=== PATIENT | female | born 1960 | race Caucasian/White ===

== ENCOUNTER 2021-11-08 20:01 | Emergency (ER) | payer MEDICARE ==
[2021-11-08] MEDS ORDERED: MORPHINE SULFATE 4 MG INJ IM ONE (20:46)
[2021-11-08] MEDS ORDERED: MORPHINE SULFATE 4 MG INJ ONE (20:48)
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
[2021-11-08] MEDS ORDERED: Sodium Chloride 0.9% 1000 ML 1,000 ML ONE (21:57)
[2021-11-08] MEDS ORDERED: Sodium Chloride 0.9% 1000 ML 1,000 ML IV SCH (22:00)
[2021-11-08 22:23] VITALS: BP 150/92; PULSE 98
--- NOTE | 2021-11-09 08:45 | XRAY ---
Indication: Pain following fall. Comparison: None AP pelvis and 2 view left hip demonstrates mildly angulated and comminuted left femur intertrochanteric fracture. Elsewhere age-related osteopenia and a few pelvic phleboliths. No other bony, articular, or soft tissue abnormalities.
[2021-11-11 07:45] VITALS: O2SAT 97
== END 2021-11-08 22:31 | disposition short-term general hospital (02) ==
LOC: ED 20:01
DX: S72.142A Displaced intertrochanteric fracture of left femur, initial encounter for closed fracture (principal); V86.65XA Passenger of 3- or 4- wheeled all-terrain vehicle (ATV) injured in nontraffic accident, initial encounter; M25.552 Pain in left hip; E78.5 Hyperlipidemia, unspecified; Z79.891 Long term (current) use of opiate analgesic; Z79.899 Other long term (current) drug therapy
CPT/HCPCS: 36000; 73502; 96372; 96374; 99284; J2270

== ENCOUNTER 2023-07-21 10:50 | Day surgery (SDC) | payer MEDICARE ==
--- NOTE | 2023-07-21 08:25 | HP ---
DATE OF SURGERY: 07/21/2023 HISTORY OF PRESENT ILLNESS: The patient is a 63-year-old had a PET scan with increased uptake in the rectal area. Dr. Cantu wants follow up endoscopy. She denies any bloody stools. Sister had colon cancer. PAST MEDICAL HISTORY: Hyperlipidemia, transient ischemic attack, chronic obstructive pulmonary disease gastroesophageal reflux disease, breast cancer, renal disease. PAST SURGICAL HISTORY: Appendectomy. section. Lymph node biopsy in the past. D&C. Hysterectomy. Hemorrhoidectomy. MEDICATIONS: Stool softener, vitamin C, vitamin D3, vitamin B complex, venlafaxine, gabapentin, famotidine, Fulvestrant, denosumab, Ibrance. ALLERGIES: NKDA. TAPE. FAMILY HISTORY: Diabetes, hypertension, lung cancer. SOCIAL HISTORY: No smoking or alcohol abuse. REVIEW OF SYSTEMS: Twelve systems reviewed. No chest pain or palpitations. Other systems negative or noncontributory as above and per preadmission assessment. PHYSICAL EXAMINATION: Height 5 feet 2 inches. BMI 24.51. GENERAL: No acute distress. HEENT: Sclerae nonicteric. EOMI. Oral mucous membranes moist. NECK: No JVD. CHEST: Equal excursion, nonlabored breathing. CVS: Regular rate and rhythm. ABDOMEN: Soft. No peritoneal signs. EXTREMITIES: No significant edema. NEURO: Alert, oriented, moving extremities symmetrically. No gross motor deficits noted. RECTAL: Deferred timed to endoscopy exam. PSYCH: Appropriate mood and affect. SKIN: Dry. IMPRESSION: Abnormal PET scan with some mild increased uptake in the rectal area. The patient does have history of breast cancer, whether this is inflammation or neoplasia she is in need of follow up colonoscopy. She was shown the risk sheet, explained the procedure in detail including but not limited to risk of bleeding or infection, risk of bowel injury or perforation, risk of missed or nondiagnosis or incomplete exam possibly requiring barium enema, other studies or procedures, general risk of anesthesia or sedation, risk of bowel prep but not limited to, consent obtained. Will proceed with outpatient colonoscopy under MAC anesthesia. Otherwise, continue medications and medical management for chronic obstructive pulmonary disease and hyperlipidemia.
[2023-07-21] MEDS ORDERED: Lactated Ringers 1,000 ML IV ONE (10:56)
[2023-07-21] MEDS: Lactated Ringers 1,000 ML IV SCH (11:14)
[2023-07-21 11:30] VITALS: RESP 18; TEMP 97.8
[2023-07-21] MEDS ORDERED: DIPRIVAN 200 MG/20 ML IV ONE ×2 (12:57→13:13)
[2023-07-21] MEDS ORDERED: Versed 2 MG/2 ML Injection ONE (12:57)
[2023-07-21] MEDS ORDERED: Xylocaine-Mpf 2% 5 Ml Vial ONE (12:57)
[2023-07-21 14:13] VITALS: BP 110/81; PULSE 82; O2SAT 94
--- NOTE | 2023-07-22 08:08 | OP ---
SURGERY DATE/TIME: 07/21/2023 1303 PREOPERATIVE DIAGNOSIS: Breast cancer. She had abnormal PET with slight increased uptake in anorectal area need follow up colonoscopy for evaluation. POSTOPERATIVE DIAGNOSES: 1) Small early polyps versus hyperplastic lesion sigmoid colon x2. 2) Soft internal and external hemorrhoids without evidence of any palpable or visible unusual mass endoscopically. 3) Good prep. PROCEDURES: Colonoscopy. SURGEON: Dr. Brayan Atwood M.D. ANESTHESIA: MAC. ESTIMATED BLOOD LOSS: Minimal. INDICATIONS: As noted above. Risks and benefits explained in detail but not limited to and consent obtained. DESCRIPTION OF PROCEDURE AND FINDINGS: The patient is taken to the endoscopy room. MAC anesthesia induced. After official time out and no disagreement with planned procedure, digital rectal exam she had some small, soft internal and external hemorrhoids. There are no palpable unusual masses. No unusual hardness in that area. She does have some small internal and external hemorrhoids. Video colonoscope inserted and passed up through the slightly tortuous sigmoid, descending, transverse and ascending colon. With the external pressure and positioning on her back, the scope was able to be passed around to the cecum. Appendiceal orifice and ileocecal valve well visualized and photo documented. Prep overall was good. There was a little bit of liquidy stool suctioned and irrigated as clear as possible but did slightly limit the exam for very tiny lesions or polyps. Otherwise, the scope is slowly and carefully withdrawn. No signs of any large polyps, masses or obstructing lesions. Over around to the sigmoid colon, a couple little, small early polyps versus hyperplastic lesion removed with hot biopsy polypectomy. Good hemostasis noted. Otherwise, down in the rectum, on retroflex no evidence of any unusual masses either on the inside or the outside. She did have internal and external hemorrhoids based on digital exam this is very soft, no hardness, no evidence of any obvious suspicious neoplasm but definitely some internal and external hemorrhoids. The scope is withdrawn. The patient tolerated the procedure well. The polyps in the sigmoid had been removed with hot biopsy polypectomy. Findings discussed with the family out in the waiting area. I will see her back in the office next week.
== END 2023-07-21 14:40 | disposition home or self-care (01) ==
LOC: SDC 10:50
PROVIDERS: ATTEND Surgery
DX: K63.5 Polyp of colon (principal); R93.89 Abnormal findings on diagnostic imaging of other specified body structures; Z85.3 Personal history of malignant neoplasm of breast; Z80.1 Family history of malignant neoplasm of trachea, bronchus and lung; Z80.0 Family history of malignant neoplasm of digestive organs; K64.4 Residual hemorrhoidal skin tags; K64.8 Other hemorrhoids
CPT/HCPCS: J1642; J2250; J2704

== ENCOUNTER 2024-04-12 10:20 | Day surgery (SDC) | payer MEDICARE ==
--- NOTE | 2024-04-11 22:33 | HP ---
HISTORY OF PRESENT ILLNESS: The patient has history of upper esophagus dysphagia, mostly solids, sometimes liquids. Has history of metastatic breast cancer, lost some weight. Patient still has some bone in her right upper jaw. PAST MEDICAL HISTORY: Breast cancer, some metastases to her lower back she said. She has had lumpectomy and lymph nodes taken out in the past. She has had weight loss. She had a TIF in 2007. She has had reflux, heartburn. She has had hiatal hernia. She has had UTI,, stroke, depression, hyperlipidemia, anemia, COPD, and arthritis in the past. HOME MEDICATIONS: Kalyan, has been on some morphine p.o., fluconazole, famotidine, venlafaxine, quetiapine, potassium chloride, atorvastatin for some hyperlipidemia, albuterol sulfate inhaler. ALLERGIES: Seroquel. PAST SURGICAL HISTORY: Appendectomy, , hemorrhoid surgery, hysterectomy. She had a TIF in the past in 2016. She had colonoscopy. She had breast lumpectomy, had nodes removed in the past for cancer. She had a port in the past. She has had EGD in the past. Left hip arthroplasty in the past. SOCIAL HISTORY: Former smoker. No alcohol abuse. FAMILY HISTORY: Negative with regard to present problem. REVIEW OF SYSTEMS: Twelve systems reviewed. Pertinent for multiple medical problems mentioned above. No chest pain or palpitations. PHYSICAL EXAMINATION: GENERAL: Height 5 feet 2 inches. BMI 23.78. No acute distress. HEENT: Sclerae nonicteric. NECK: No JVD. CHEST: Clear. Equal excursion, nonlabored breathing. CARDIOVASCULAR: Regular rate and rhythm. ABDOMEN: Soft. SKIN: Dry. EXTREMITIES: No cyanosis. NEUROLOGIC: Alert. PSYCHIATRIC: Appropriate mood and affect. IMPRESSION: Dysphagia upper esophagus. I feel the patient needs EGD, possible biopsy, esophageal dilatation. Risks and benefits explained in detail to include bleeding, infection, risk of bowel injury or perforation, risk of misdiagnosis or incomplete exam possibility requiring barium swallow, possibility of no improvement in swallowing if dilatation is improved possibly requiring other procedures and/or studies or dilators, possibility she may have a functional or neurologic problem other than narrowing and dilatation may not benefit. She understands. Otherwise, proceed with EGD, possible biopsy, possible dilatation as an outpatient. Otherwise, continue medication for COPD, hyperlipidemia, arthritis, breast cancer.
[2024-04-12 10:59] LABS: Basophil (Absolute #) 0 x10^3/uL (0.01-0.08); Eosinophil % 1.4 % (0.7-5.8); Eosinophil (Absolute #) 0.06 x10^3/uL (0.04-0.36); Hematocrit 36.1 % (34.1-44.9); Hemoglobin 11.4 g/dL (11.2-15.7); IMMATURE GRAN # 0.01 x10^3u/L (0.001-0.031); IMMATURE GRAN % 0.2 % (0.001-0.429); Lymphocyte (Absolute #) 0.73 x10^3/uL (1.18-3.74); Lymphocytes % 17.5 % (19.3-51.7); Mean Cell Volume 94.8 fL (79.4-94.8); Mean Corpuscular Hemoglobin 29.9 pg (25.6-32.2); Mean Corpuscular Hgb Concent. 31.6 g/dL (32.2-35.5); Mean Platelet Volume 10.9 fL (9.4-12.3); Monocyte (Absolute #) 0.46 x10^3/uL (0.24-0.86); Monocytes % 11.1 % (4.7-12.5); Neutrophil % 69.8 % (34.0-71.1); Platelet Count 207 x10^3/uL (182-369); Red Blood Count 3.81 x10^6/uL (3.93-5.22); Red Cell Distribution Width 14.8 % (11.7-14.4); White Blood Count 4.2 x10^3/uL (3.98-10.04)
[2024-04-12 11:33] LABS: ANION GAP 9.2 MEQ/L (5-15); Calcium 9.8 mg/dL (8.4-10.2); Creatinine 1 1.16 mg/dL (0.52-1.04); EST GLOMERULAR FILTRATION RATE 52.3 ML/MIN
[2024-04-12] MEDS ORDERED: DIPRIVAN 200 MG/20 ML IV ONE ×2 (12:43→13:02)
[2024-04-12 13:26] VITALS: RESP 18; TEMP 97.7; O2SAT 93
[2024-04-12 13:29] VITALS: BP 122/83; PULSE 69
--- NOTE | 2024-04-13 10:36 | OP ---
SURGERY DATE/TIME: 04/12/2024 [id number] PREOPERATIVE DIAGNOSIS: Dysphagia. POSTOPERATIVE DIAGNOSES: 1) Mild gastric erythema, biopsy obtained to evaluate for Helicobacter pylori. 2) Hiatal hernia. 3) Mild distal esophagus erythema, cold biopsy pending. 4) Proximal esophageal narrowing and spasm without any obvious mass. PROCEDURES: 1) Esophagogastroduodenoscopy, cold biopsy of the antrum for Helicobacter pylori, cold biopsy of the distal esophagus for histology. 2) Proximal esophageal dilatation (20 balloon). SURGEON: Brayan Atwood MD. ANESTHESIA: MAC. ESTIMATED BLOOD LOSS: Minimal. INDICATIONS: Consent was obtained. DESCRIPTION OF PROCEDURE AND FINDINGS: Patient was taken to the endoscopy room. MAC anesthesia was induced. After official time-out, no disagreement in planned procedure. Video gastroscope passed down the oropharynx. There was some proximal esophageal smooth narrowing and spasm without any evidence of any mass to biopsy. Given her symptoms there, it was felt it warranted dilatation, but there was no evidence of any lesion to biopsy. Scope passed back down and through a hiatal hernia, through the gastroesophageal junction into the second and third portions of the duodenum. The duodenum was grossly unremarkable. Scope pulled back in the stomach. She had some mild gastric erythema. Cold biopsy was taken to evaluate for H pylori. On retroflex, she did have a large hiatal hernia that was chronic in nature and no evidence of any ulcerations or erosions. The scope was straightened. The GE junction was about 33 cm. There was some minimal erythema or inflammation of the distal esophagus. Cold biopsy was taken for path for histology. There was some tertiary contraction of the esophagus, but no signs of any obvious esophageal masses or lesions. Scope passed back down into the stomach. It was felt minimal dilatation of the proximal narrowing, and a balloon catheter was carefully inserted. A 20 balloon catheter was then pulled back up to the proximal esophageal narrowing area where it was carefully inflated, first stage for 30 seconds, second stage for 30 seconds, and final stage for at least a minute and a half, size 20 balloon dilated. The balloon was then decompressed, and the balloon catheter removed. The scope much more easily passed through this area back down into the stomach which was decompressed and then withdrawn. There were no signs of any full-thickness issues or injury secondary to dilatation. The patient tolerated the procedure well.
== END 2024-04-12 13:37 | disposition home or self-care (01) ==
LOC: SDC 10:20
PROVIDERS: ATTEND Surgery
DX: K44.9 Diaphragmatic hernia without obstruction or gangrene (principal); R13.10 Dysphagia, unspecified; Z85.3 Personal history of malignant neoplasm of breast; K31.89 Other diseases of stomach and duodenum; K22.2 Esophageal obstruction
CPT/HCPCS: 36415; 80048; 85025; C1726; J2704

== ENCOUNTER 2025-01-10 10:40 | Day surgery (SDC) | payer MEDICARE ==
--- NOTE | 2025-01-10 10:27 | HP ---
HISTORY OF PRESENT ILLNESS: A 64-year-old, had some breast cancer, metastatic, in remission. She had abnormal PET scan anorectal area, is in need of colonoscopy. No bloody stools. Family history, sister had colon cancer. The patient had 2 prior hemorrhoid surgeries in the past. PAST MEDICAL HISTORY: Again, breast cancer metastasized to her back in the past, followed by Dr. Cantu. The patient had a TIF procedure in 2007, has had some dysphagia, has had some reflux. Had prior hiatal hernia. Had history of UTIs, stroke, depression, hyperlipidemia, COPD, and arthritis. HOME MEDICATIONS: Hydrocodone, fluconazole, famotidine, venlafaxine, quetiapine, potassium chloride, atorvastatin, albuterol sulfate. ALLERGIES: Seroquel. PAST SURGICAL HISTORY: Had appendectomy, hemorrhoid surgery, , hysterectomy, transoral incisionless fundoplication in the past, had colonoscopy in the past, breast lumpectomy in the past, Port-A-Cath in the past, EGD in the past, had left hip arthroplasty in the past. SOCIAL HISTORY: Former smoker. No alcohol abuse. FAMILY HISTORY: Negative with regards to this problem. REVIEW OF SYSTEMS: Twelve systems reviewed. Pertinent for multiple medical problems noted above. No chest pain or palpitations. PHYSICAL EXAMINATION: GENERAL: No acute distress. VITAL SIGNS: Height 5 feet 2 inches. BMI 24.33. HEENT: Sclerae nonicteric. NECK: No JVD. CHEST: Equal excursion, nonlabored breathing. CARDIOVASCULAR: Regular rate and rhythm. ABDOMEN: Soft. SKIN: Dry. EXTREMITIES: No cyanosis. NEUROLOGIC: Alert and oriented, moving all extremities symmetrically. RECTAL: Deferred until time of endoscopy exam. IMPRESSION: Abnormal anorectal area on PET scan, needs colonoscopy. Shown the risk sheet. Explained procedure in detail not limited to, bleeding, infection; risk of bowel injury or perforation possibly requiring open procedure; risk of missed or nondiagnosis possibly requiring need for other procedures or referrals; risk of anesthesia, sedation; risk of bowel prep, but not limited to. She understands if she had something there requiring biopsy, risk of aches and pains and also risk of nonhealing; risk of anesthesia, DVT, PE, pneumonia. Will proceed outpatient general exam under anesthesia and colonoscopy. Otherwise, continue medications for COPD, depression, hyperlipidemia, breast cancer, reflux.
[2025-01-10 10:47] VITALS: RESP 18
[2025-01-10] MEDS: Lactated Ringers 1,000 ML IV SCH (11:07)
[2025-01-10] MEDS ORDERED: Quelicin Fliptop 200 MG/10 ML ONE (12:32)
[2025-01-10] MEDS ORDERED: Versed 2 MG/2 ML Injection ONE (12:33)
[2025-01-10] MEDS ORDERED: SUBLIMAZE 100 MCG/2 ML ONE (12:33)
[2025-01-10] MEDS ORDERED: propofoL IV ONE ×2 (12:37→13:10)
[2025-01-10] MEDS ORDERED: Xylocaine-Mpf 2% 5 Ml Vial ONE (13:06)
[2025-01-10] MEDS ORDERED: Zofran 4 MG/2 ML VIAL ONE (13:17)
[2025-01-10 14:28] VITALS: BP 139/97; PULSE 83; TEMP 97.6; O2SAT 95
--- NOTE | 2025-01-12 10:03 | OP ---
SURGERY DATE/TIME: 01/10/2025 [id number] PREOPERATIVE DIAGNOSES: 1) History of metastatic breast cancer. 2) History of abnormal anorectal PET scan findings, in need of colonoscopy and examination under anesthesia. POSTOPERATIVE DIAGNOSES: 1) Small polyp cecum and rectum. 2) A 2 cm sessile polyp proximal ascending colon (not safely completely resectable at this endoscopic setting). 3) Internal and external hemorrhoids. No evidence of any suspicious anorectal mass at this time. PROCEDURE: 1) Colonoscopy to cecum, hot biopsy polypectomy small early polyp versus hyperplastic lesion in the cecum. 2) Hot biopsy polypectomy early polyp versus hyperplastic lesion, rectum. 3) Hot biopsy of proximal ascending colon polyp (not removed). 4) Examination under anesthesia. SURGEON: Brayan Atwood MD ANESTHESIA: General. ESTIMATED BLOOD LOSS: Minimal. INDICATIONS: As above. Consent was obtained. DESCRIPTION OF PROCEDURE AND FINDINGS: After waiting for Anesthesia to be available, she was taken to the operating room, general anesthesia induced, placed in lateral position. After official time-out and no disagreement in planned procedure, the colonoscope was carefully inserted, passed up through the slightly tortuous sigmoid, descending, transverse, and ascending colon. With external pressure, scope was able to be passed around to the cecum. Appendiceal orifice and valve well visualized, photo documented. Prep overall was fair. ASA class was 3. There was after suctioning the cecum out a small early polyp versus hyperplastic lesion in the cecum. It was removed with hot biopsy forceps. Good hemostasis noted. Photo documented the appendiceal area and ileocecal valve after biopsying the cecal polyp. Scope pulled back. In the proximal ascending colon, on the ileocecal valve side is a fold. In the proximal ascending colon was a flat 2 cm polyp. It was not felt in this particular patient this could be completely removed at this setting. Multiple biopsies were taken with the forceps and sent for pathology. This appeared adenomatous. It did not appear firm to be a carcinoma at this point but was a large flat polyp, did not think it could be completely safely removed at this setting. After the biopsies were done, good hemostasis noted. The scope slowly and carefully withdrawn over a 10-minute period, stopping and irrigating and suction irrigating liquidy stool as well as possible which slightly limited the exam. Scope was carefully pulled down the descending colon and sigmoid to the rectum. Proximal rectum, small polyp versus hyperplastic polyp was removed with hot biopsy forceps, brief burst of cautery. Good hemostasis noted. On retroflex, she had some erythematous internal and external hemorrhoids. There was no large rectal mass. Given her abnormal PET scan findings, it was felt she needed exam with rectal retractors in the brighter lights. Therefore, the scope had been withdrawn. She was placed in dorsal lithotomy position and some Betadine paint painted around the area and halfmoon retractors carefully inserted. She had grade 2 hyperemic internal and external hemorrhoids but did not have any obvious gross mass or lesion that needed resection under the bright OR lights, and careful palpation revealed normal sphincter tone, and other than the internal and external hemorrhoids, no evidence of any palpable suspicious lesion at this time. The retractors were withdrawn. The patient tolerated the procedure well. There were no immediate complications. We will see if she has family and discuss findings with them. We will see her back in the office next week to discuss options on her large flat polyp in the proximal ascending colon.
== END 2025-01-10 14:35 | disposition home or self-care (01) ==
LOC: SDC 10:40
PROVIDERS: ATTEND Surgery
DX: Z08 Encounter for follow-up examination after completed treatment for malignant neoplasm (principal); Z85.3 Personal history of malignant neoplasm of breast; Z80.0 Family history of malignant neoplasm of digestive organs; K62.1 Rectal polyp; K64.4 Residual hemorrhoidal skin tags; K64.8 Other hemorrhoids; D12.2 Benign neoplasm of ascending colon